=== PATIENT | male | born 1990 | race Caucasian/White ===

== ENCOUNTER 2021-08-10 15:23 | Emergency (ER) | payer MEDICAID ==
[~2021-08-10] VITALS: Ht 172.7 cm; Wt 88.6 kg
[2021-08-10] MEDS ORDERED: ORPH100T2 PO (17:06)
[2021-08-10] MEDS ORDERED: NAPR-56 PO (17:06)
== END 2021-08-10 17:14 | disposition home or self-care (01) ==
LOC: ER 15:23
DX: S13.4XXA Sprain of ligaments of cervical spine, initial encounter (principal); M54.2 Cervicalgia; Z79.899 Other long term (current) drug therapy; V87.7XXA Person injured in collision between other specified motor vehicles (traffic), initial encounter; Y93.89 Activity, other specified; Y92.89 Other specified places as the place of occurrence of the external cause; Y99.8 Other external cause status
CPT/HCPCS: 99283